=== PATIENT | male | born 1995 | race Caucasian/White ===

== ENCOUNTER 2016-09-03 13:50 | Emergency (ER) | payer OTHER ==
--- NOTE | 2016-09-03 14:09 | EDPHY ---
H & P Time Seen by Provider: 09/03/16 13:59 HPI/ROS: CHIEF COMPLAINT: Lip swelling HISTORY OF PRESENT ILLNESS: This patient is a 21 year old male who presents to the Emergency department complaining of lower lip swelling beginning around 1330 today. He tells me that he has had cold sores over the past 3-4 days and believes that he exacerbated the swelling around one of his sores by smoking a cigarette today. Upon arrival, the swelling has improved with application of ice here in the ED. His sore is not pruritic. He denies any additional complaints; no fever, shortness of breath, or other concerns. He has no history of allergies. Past Medical/Surgical History: Denies. Social History: Smokes tobacco regularly. Works for [employer]. Smoking Status: Current every day smoker Physical Exam: General Appearance: Alert, pleasant Eyes: Pupils equal and round, no conjunctival pallor or injection ENT, Mouth: Mucous membranes moist, superficial ulceration to lower lip, mild swelling of the left side of lower lip, no intraoral swelling Neck: Normal inspection, no stridor Respiratory: Lungs are clear to auscultation, no wheezing Cardiovascular: Regular rate and rhythm Neurological: A&O, nonfocal, normal gait Skin: Warm and dry, no rash Extremities: normal inspection Psychiatric: Mood and affect normal Constitutional: Initial Vital Signs Temperature (C) 36.6 C 09/03/16 13:53 Heart Rate 62 09/03/16 13:53 Respiratory Rate 17 09/03/16 13:53 Blood Pressure 138/69 H 09/03/16 13:53 O2 Sat (%) 98 09/03/16 13:53 O2 Delivery Mode Room Air Allergies/Adverse Reactions: No Known Allergies Allergy (Verified 09/03/16 13:53) Home Medications: Medication Instructions Recorded Valacyclovir HCl [Valtrex] 1,000 mg PO BID #10 tablet 09/03/16 Medical Decision Making ED Course/Re-evaluation: 25mg PO Benadryl administered for possible allergic reaction. The patient's lip swelling has increased significantly since initial presentation. He exhibits no additional signs of allergic reaction. I discussed my recommendation that he use Claritin and Benadryl to address possible allergic reaction until his symptoms have entirely subsided. He is agreeable to this. He understands return to the ED precautions and will be discharged home in stable condition. Differential Diagnosis: Differential diagnosis includes though it is not limited to laryngeal edema, bronchospasm, hypotension, angioedema. - Data Points Medications Given: Discontinued Medications Diphenhydramine HCl (Benadryl) 25 mg PO EDNOW ONE Stop: 09/03/16 14:27 Last Admin: 09/03/16 14:59 Dose: 25 mg Departure - Departure Disposition: Home, Routine, Self-Care Clinical Impression: Cold sore, Lip swelling Condition: Good Instructions: Angioedema (ED) Additional Instructions: 1. Apply ice regularly to the site of your swollen lip. 2. Take Benadryl as directed on the package at night and Claritin as directed on the package in the morning as long as your swelling persists. Both of these can be purchased [id number]. 3. Follow-up with your Primary Care Provider for further evaluation in 3-5 days if your symptoms do not entirely subside. 4. Return to the Emergency Department immediately if your lip swelling gets worse or if your face begins to swell, you have difficulty breathing, if you experience fever or chills, or for other serious concerns. Referrals: ADE JEFF [Primary Care Provider] - As per Instructions Prescriptions: Valacyclovir HCl [Valtrex] 1,000 mg PO BID #10 tablet Report Scribed for: Shaila Ocasio Report Scribed by: Sara Leo Date of Report: 09/03/16 Time of Report: 14:09 Physician Review and Approval Statement: 09/03/16 14:09 Portions of this note were transcribed by a medical orderly. I personally performed a history, physical exam, medical decision making, and confirmed accuracy of information the transcribed note.
[2016-09-03] MEDS ORDERED: diphenhydrAMINE 25 MG CAP PO ONE (14:26)
[2016-09-03 15:02] VITALS: BP 132/76; PULSE 54; RESP 20; TEMP 98.1; O2SAT 97
== END 2016-09-03 15:02 | disposition home or self-care (01) ==
DX: K13.0 Diseases of lips (principal); K13.79 Other lesions of oral mucosa; F17.200 Nicotine dependence, unspecified, uncomplicated